=== PATIENT | female | born 1985 | race Caucasian/White ===

== ENCOUNTER 2016-11-16 21:53 | Emergency (ER) | payer OTHER ==
[2016-11-16] MEDS ORDERED: MECLIZINE 12.5 MG TAB As Ordered ONE (23:01)
[2016-11-16] MEDS ORDERED: AUGMENTIN 875 MG TAB As Ordered ONE (23:01)
[2016-11-16] MEDS ORDERED: NORCO 5/325MG TABLET (BULK) As Ordered ONE (23:02)
--- NOTE | 2016-11-16 23:10 | EDDOCDS ---
Physician Documentation [facility] Name: Radha Maurer Age: 31 yrs Sex: Female : 1985 Arrival Date: 11/16/2016 Time: 21:53 Bed Triage 1 Private MD: NO PRIMARY PHYSICIAN, . Disposition: 11/16/16 23:02 Discharged to Home/Self Care. Impression: Acute sinusitis, Other peripheral vertigo. - Condition is Stable. - Discharge Instructions: Sinusitis, Adult, Vertigo. - Prescriptions for Augmentin 875- 125 mg Oral Tablet - take 1 tablet by ORAL route every 12 hours for 10 days; 20 tablet. Meclizine 25 mg Oral Tablet - take 1 tablet by ORAL route every 8 hours As needed; 30 tablet. ZOFRAN ODT 4 mg - dissolve 1 tablet by ORAL route 4 times per day As needed do not chew, do not swallow whole; 10 tablet. Fluticasone 50 mcg/actuation Nasal [place], Suspension - inhale 2 spray by INTRANASAL route once daily; 1 bottle. - Medication Reconciliation, Local Pharmacy Hours, Work Release Form - 2 day form. - [facility] up[facility]; When: Call to arrange an appointment; Reason: Recheck today's complaints, Continuance of care. - Problem is new. - Symptoms are unchanged. Historical: - Allergies: no known allergies; - Home Meds: 1. ibuprofen 1600mg Oral tab every 6 hours (Last dose: 11/16/2016 20:00) 2. Tylenol 325 mg Oral tab 2 tabs every 3 hours (Last dose: 11/16/2016 17:00) - PMHx: none; - PSHx: eye surgery as child; Tubal ligation; - Social history: Smoking status: Patient uses tobacco products, heavy tobacco smoker. Patient/guardian denies using alcohol, street drugs, No barriers to communication noted, The patient speaks fluent Botswanan, Speaks appropriately for age. - Family history: Not pertinent. - : The pt / caregiver states he / she is not on anticoagulants. Home medication list is obtained from the patient. - Exposure Risk Screening:: None identified. 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 9 in. (175.26 cm) (R); Pain 10/10; 23:07 BP 120 / 58; Pulse 75; Resp 18; Temp 98.2(O); Pulse Ox 96% on R/A; Pain 2/10; jmb 21:54 Body Mass Index 25.10 (77.11 kg, 175.26 cm) gr2 MDM: 22:56 Amoxicillin-Clavulanate 875 mg 1 tabs PO once ordered. mo1 22:56 HYDROcodone-acetaminophen 4 pack- 5 mg-325 mg 1 packets PO Per package directions; mo1 Dispense with patient. 1 po q4h prn for pain ordered. 22:56 Meclizine 25 mg PO once ordered. mo1 23:08 Financial registration complete. gjb Administered Medications: 23:04 Drug: HYDROcodone-acetaminophen 4 pack- 1 packets [hydrocodone 5 mg-acetaminophen 325 jmb mg tablet (1 tabs)] {Co-Signature: [email or web address] (Stacia Woodard RN).} Route: PO; 23:07 Drug: Amoxicillin-Clavulanate 1 tabs [amoxicillin 875 mg-potassium clavulanate 125 mg jmb tablet (1 tabs)] Route: PO; 23:07 Drug: Meclizine 25 mg [meclizine 12.5 mg tablet (2 tabs)] Route: PO; vel Signatures: Stacia Woodard RN RN ttb O'Hagan, Michael, PA PA mo1 Willard Hays RN RN jmb Beck, Gabriela gjb Teresa Conner RN ttb MTDD
--- NOTE | 2016-11-16 23:11 | EDDOCDS ---
Nurse's Notes [facility] Name: Radha Maurer Age: 31 yrs Sex: Female : 1985 Arrival Date: 11/16/2016 Time: 21:53 Bed Triage 1 Private MD: NO PRIMARY PHYSICIAN, . Diagnosis: Acute sinusitis;Other peripheral vertigo Presentation: 11/16 22:08 Presenting complaint: Patient states: headache x3 days. Right ear pain started today. ttb Adult Sepsis Screening: The patient does not have new or worsening altered mentation. Patient's respiratory rate is less than 22. Systolic blood pressure is greater than 100. Patient has a qSOFA score of 0- Negative Sepsis Screen. Suicide/Homicide risk assessment- the patient denies having any suicidal and/or homicidal ideations and does not present with any other emotional, behavioral or mental health complaints. Status: Patient is not a sales agent pest control service or dependent. Transition of care: patient was not received from another setting of care. 22:08 Acuity: JULIA Level 5 ttb 22:08 Method Of Arrival: Walkin/Carried/Asstd ttb Triage Assessment: 22:09 General: Appears in no apparent distress, uncomfortable, well nourished, well groomed, ttb Behavior is appropriate for age, cooperative, pleasant. Pain: Location: head and right ear Pain currently is 10 out of 10 on a pain scale. At worst was 10 out of 10 on a pain scale. HIV screening NA for this visit Offered previously. Neurological: Level of Consciousness is awake, alert. Neurological: Reports headache. EENT: Reports nasal congestion nasal discharge. EENT: Reports pain in right ear. Cardiovascular: Chest pain is denied. Respiratory: Airway is patent Respiratory effort is even, unlabored, Reports cough that is productive, Denies shortness of breath. Derm: Skin is normal. Injury Description: No known injury. 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 ibuprofen 1600mg Oral tab every 6 hours (Last dose: 11/16/2016 20:00) 2. Tylenol 325 mg Oral tab 2 tabs every 3 hours (Last dose: 11/16/2016 17:00) - PMHx: none; - PSHx: eye surgery as child; Tubal ligation; - Social history: Smoking status: Patient uses tobacco products, heavy tobacco smoker. Patient/guardian denies using alcohol, street drugs, No barriers to communication noted, The patient speaks fluent Norwegian, Speaks appropriately for age. - Family history: Not pertinent. - : The pt / caregiver states he / she is not on anticoagulants. Home medication list is obtained from the patient. - Exposure Risk Screening:: None identified. Screenin:07 Screening information is obtained from the patient. Fall risk: No risks identified. jmb Assistance ADL's: requires no assistance with activities of daily living. Abuse/DV Screen: The patient / caregiver reports he/she is: not in a situation that causes fear, pain or injury. Nutritional screening: No deficits noted. Advance Directives: Currently, there is no health care proxy. There is no active DNR order. There is no living will. There is no Power of Director Furniture. home support is adequate. Assessment: 23:07 General: Patient instructed on discharge instructions. Patient asked if there were any b questions regarding discharge, patient stated no. Patient signed discharge instructions. Patient discharged in stable condition. . Vital Signs: 21:54 BP 115 / 78; Pulse 87; Resp 18 S; Temp 98.0(O); Pulse Ox 96% on R/A; Weight 77.11 kg gr2 (R); Height 5 ft. 9 in. (175.26 cm) (R); Pain 10/10; 23:07 BP 120 / 58; Pulse 75; Resp 18; Temp 98.2(O); Pulse Ox 96% on R/A; Pain 2/10; jmb 21:54 Body Mass Index 25.10 (77.11 kg, 175.26 cm) gr2 Vitals: 21:54 Log In Time: November 16, 2016 at 21:54. gr2 ED Course: 21:54 Patient visited by Ani Rae. gr2 21:54 NO PRIMARY PHYSICIAN, . is Private Physician. gr2 21:54 Patient moved to Waiting gr2 21:55 Patient visited by Ani Rae. gr2 21:55 Patient moved to Pre RCE gr2 22:08 Triage Initiated ttb 22:35 Patient moved to Triage 1 rn1 22:36 Cesar De La Cruz PA is PHCP. mo1 22:36 Michael Barraza DO is Attending Physician. mo1 22:55 Patient visited by Cesar De La Cruz PA. mo1 23:02 [facility] is Referral Physician. mo1 23:07 The patient / caregiver is instructed regarding the plan of care and ED course. jmb 23:07 No IV's were initiated during this patient's visit. No procedures done that require jmb assistance. Administered Medications: 23:04 Drug: HYDROcodone-acetaminophen 4 pack- 1 packets [hydrocodone 5 mg-acetaminophen 325 jmb mg tablet (1 tabs)] {Co-Signature: ttb (Stacia Woodard RN).} Route: PO; 23:07 Drug: Amoxicillin-Clavulanate 1 tabs [amoxicillin 875 mg-potassium clavulanate 125 mg jmb tablet (1 tabs)] Route: PO; 23:07 Drug: Meclizine 25 mg [meclizine 12.5 mg tablet (2 tabs)] Route: PO; jmb Order Results: There are currently no results for this order. Outcome: 23:02 Discharge ordered by Provider. mo1 23:07 Discharge Assessment: Patient awake, alert and oriented x 3. No cognitive and/or jmb functional deficits noted. Patient verbalized understanding of disposition instructions. Patient awake and alert. obeys commands, Oriented to person, place and time. Patient verbalized understanding of disposition instructions. Patient has no functional deficits. patient administered narcotics - no. The following High Risk Discharge criteria are identified: None. Discharged to home ambulatory, with friend. Condition: stable. Discharge instructions given to patient, Instructed on discharge instructions, follow up and referral plans. medication usage, Demonstrated understanding of instructions, medications, Pt was receptive of discharge instructions/ teaching. Prescriptions given X 4. No special radiology studies were completed. Property sent home with patient. 23:10 Patient left the ED. jmb Signatures: Stacia Woodard RN RN ttb Ain Rae 2 Cesar De La Cruz PA PA mo1 Willard Hays RN RN jmb Ganesh Freeman rn1 Stacia Woodard RN ttviktoriya MTDD
--- NOTE | 2016-11-19 00:11 | EDDOCDS ---
Physician Documentation [facility] Name: Radha Maurer Age: 31 yrs Sex: Female : 1985 Arrival Date: 11/16/2016 Time: 21:53 Bed Triage 1 Private MD: NO PRIMARY PHYSICIAN, . Disposition: 11/16/16 23:02 Discharged to Home/Self Care. Impression: Acute sinusitis, Other peripheral vertigo. - Condition is Stable. - Discharge Instructions: Sinusitis, Adult, Vertigo. - Prescriptions for Augmentin 875- 125 mg Oral Tablet - take 1 tablet by ORAL route every 12 hours for 10 days; 20 tablet. Meclizine 25 mg Oral Tablet - take 1 tablet by ORAL route every 8 hours As needed; 30 tablet. ZOFRAN ODT 4 mg - dissolve 1 tablet by ORAL route 4 times per day As needed do not chew, do not swallow whole; 10 tablet. Fluticasone 50 mcg/actuation Nasal [place], Suspension - inhale 2 spray by INTRANASAL route once daily; 1 bottle. - Medication Reconciliation, Local Pharmacy Hours, Work Release Form - 2 day form. - Follow up: [facility]; When: Call to arrange an appointment; Reason: Recheck today's complaints, Continuance of care. - Problem is new. - Symptoms are unchanged. Historical: - Allergies: no known allergies; - Home Meds: 1. ibuprofen 1600mg Oral tab every 6 hours (Last dose: 11/16/2016 20:00) 2. Tylenol 325 mg Oral tab 2 tabs every 3 hours (Last dose: 11/16/2016 17:00) - PMHx: none; - PSHx: eye surgery as child; Tubal ligation; - Social history: Smoking status: Patient uses tobacco products, heavy tobacco smoker. Patient/guardian denies using alcohol, street drugs, No barriers to communication noted, The patient speaks fluent Occitan, Speaks appropriately for age. - Family history: Not pertinent. - : The pt / caregiver states he / she is not on anticoagulants. Home medication list is obtained from the patient. - Exposure Risk Screening:: None identified. 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 9 in. (175.26 cm) (R); Pain 10/10; 23:07 BP 120 / 58; Pulse 75; Resp 18; Temp 98.2(O); Pulse Ox 96% on R/A; Pain 2/10; jmb 21:54 Body Mass Index 25.10 (77.11 kg, 175.26 cm) gr2 MDM: 22:56 Amoxicillin-Clavulanate 875 mg 1 tabs PO once ordered. mo1 22:56 HYDROcodone-acetaminophen 4 pack- 5 mg-325 mg 1 packets PO Per package directions; mo1 Dispense with patient. 1 po q4h prn for pain ordered. 22:56 Meclizine 25 mg PO once ordered. mo1 23:08 Financial registration complete. [email or web address] 11/17 00:33 [facility] Payment Agreement was scanned into [email or web address] and attached to record. [facility] 07:41 T-Sheet-- Draft Copy was scanned into [employer] and attached to record. gb Administered Medications: 11/16 23:04 Drug: HYDROcodone-acetaminophen 4 pack- 1 packets [hydrocodone 5 mg-acetaminophen 325 jmb mg tablet (1 tabs)] {Co-Signature: ttviktoriya (Stacia Woodard RN).} Route: PO; 23:07 Drug: Amoxicillin-Clavulanate 1 tabs [amoxicillin 875 mg-potassium clavulanate 125 mg jmb tablet (1 tabs)] Route: PO; 23:07 Drug: Meclizine 25 mg [meclizine 12.5 mg tablet (2 tabs)] Route: PO; b Signatures: Alret Patrick, Reg Reg Stacia Grace RN RN Cesar Ndiaye PA PA mo1 Willard Hays RN RN jmb Hook, Sandra Anel Can RN The chart was reviewed and I authenticate all verbal orders and agree with the evaluation and treatment provided.Attachments: 11/17 00:33 [facility] Payment Agreement [facility] 07:41 T-Sheet-- Draft Copy gb Chart Complete MTDD
--- NOTE | 2016-11-19 00:11 | EDDOCDS ---
Physician Documentation [facility] Name: Radha Maurer Age: 31 yrs Sex: Female : 1985 Arrival Date: 11/16/2016 Time: 21:53 Bed Triage 1 Private MD: NO PRIMARY PHYSICIAN, . Disposition: 11/16/16 23:02 Discharged to Home/Self Care. Impression: Acute sinusitis, Other peripheral vertigo. - Condition is Stable. - Discharge Instructions: Sinusitis, Adult, Vertigo. - Prescriptions for Augmentin 875- 125 mg Oral Tablet - take 1 tablet by ORAL route every 12 hours for 10 days; 20 tablet. Meclizine 25 mg Oral Tablet - take 1 tablet by ORAL route every 8 hours As needed; 30 tablet. ZOFRAN ODT 4 mg - dissolve 1 tablet by ORAL route 4 times per day As needed do not chew, do not swallow whole; 10 tablet. Fluticasone 50 mcg/actuation Nasal [place], Suspension - inhale 2 spray by INTRANASAL route once daily; 1 bottle. - Medication Reconciliation, Local Pharmacy Hours, Work Release Form - 2 day form. - Follow up: [facility]; When: Call to arrange an appointment; Reason: Recheck today's complaints, Continuance of care. - Problem is new. - Symptoms are unchanged. Historical: - Allergies: no known allergies; - Home Meds: 1. ibuprofen 1600mg Oral tab every 6 hours (Last dose: 11/16/2016 20:00) 2. Tylenol 325 mg Oral tab 2 tabs every 3 hours (Last dose: 11/16/2016 17:00) - PMHx: none; - PSHx: eye surgery as child; Tubal ligation; - Social history: Smoking status: Patient uses tobacco products, heavy tobacco smoker. Patient/guardian denies using alcohol, street drugs, No barriers to communication noted, The patient speaks fluent Icelandic, Speaks appropriately for age. - Family history: Not pertinent. - : The pt / caregiver states he / she is not on anticoagulants. Home medication list is obtained from the patient. - Exposure Risk Screening:: None identified. 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 9 in. (175.26 cm) (R); Pain 10/10; 23:07 BP 120 / 58; Pulse 75; Resp 18; Temp 98.2(O); Pulse Ox 96% on R/A; Pain 2/10; jmb 21:54 Body Mass Index 25.10 (77.11 kg, 175.26 cm) gr2 MDM: 22:56 Amoxicillin-Clavulanate 875 mg 1 tabs PO once ordered. mo1 22:56 HYDROcodone-acetaminophen 4 pack- 5 mg-325 mg 1 packets PO Per package directions; mo1 Dispense with patient. 1 po q4h prn for pain ordered. 22:56 Meclizine 25 mg PO once ordered. mo1 23:08 Financial registration complete. [email or web address] 11/17 00:33 [facility] Payment Agreement was scanned into [employer] and attached to record. [facility] 07:41 T-Sheet-- Draft Copy was scanned into [employer] and attached to record. gb Administered Medications: 11/16 23:04 Drug: HYDROcodone-acetaminophen 4 pack- 1 packets [hydrocodone 5 mg-acetaminophen 325 jmb mg tablet (1 tabs)] {Co-Signature: ttviktoriya (Stacia Woodard RN).} Route: PO; 23:07 Drug: Amoxicillin-Clavulanate 1 tabs [amoxicillin 875 mg-potassium clavulanate 125 mg jmb tablet (1 tabs)] Route: PO; 23:07 Drug: Meclizine 25 mg [meclizine 12.5 mg tablet (2 tabs)] Route: PO; b Signatures: Arlet Patrick, Reg Reg Stacia Grace RN RN Cesar Ndiaye PA PA mo1 Willard Hays RN RN jmb Hook, Sandra Anel Can RN The chart was reviewed and I authenticate all verbal orders and agree with the evaluation and treatment provided.Attachments: 11/17 00:33 [facility] Payment Agreement [facility] 07:41 T-Sheet-- Draft Copy gb Chart Complete MTDD
--- NOTE | 2016-11-19 00:11 | EDDOCDS ---
Nurse's Notes [facility] Name: Radha Maurer Age: 31 yrs Sex: Female : 1985 Arrival Date: 11/16/2016 Time: 21:53 Bed Triage 1 Private MD: NO PRIMARY PHYSICIAN, . Diagnosis: Acute sinusitis;Other peripheral vertigo Presentation: 11/16 22:08 Presenting complaint: Patient states: headache x3 days. Right ear pain started today. ttb Adult Sepsis Screening: The patient does not have new or worsening altered mentation. Patient's respiratory rate is less than 22. Systolic blood pressure is greater than 100. Patient has a qSOFA score of 0- Negative Sepsis Screen. Suicide/Homicide risk assessment- the patient denies having any suicidal and/or homicidal ideations and does not present with any other emotional, behavioral or mental health complaints. Status: Patient is not a business services associate or dependent. Transition of care: patient was not received from another setting of care. 22:08 Acuity: JULIA Level 5 ttb 22:08 Method Of Arrival: Walkin/Carried/Asstd ttb Triage Assessment: 22:09 General: Appears in no apparent distress, uncomfortable, well nourished, well groomed, ttb Behavior is appropriate for age, cooperative, pleasant. Pain: Location: head and right ear Pain currently is 10 out of 10 on a pain scale. At worst was 10 out of 10 on a pain scale. HIV screening NA for this visit Offered previously. Neurological: Level of Consciousness is awake, alert. Neurological: Reports headache. EENT: Reports nasal congestion nasal discharge. EENT: Reports pain in right ear. Cardiovascular: Chest pain is denied. Respiratory: Airway is patent Respiratory effort is even, unlabored, Reports cough that is productive, Denies shortness of breath. Derm: Skin is normal. Injury Description: No known injury. 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 ibuprofen 1600mg Oral tab every 6 hours (Last dose: 11/16/2016 20:00) 2. Tylenol 325 mg Oral tab 2 tabs every 3 hours (Last dose: 11/16/2016 17:00) - PMHx: none; - PSHx: eye surgery as child; Tubal ligation; - Social history: Smoking status: Patient uses tobacco products, heavy tobacco smoker. Patient/guardian denies using alcohol, street drugs, No barriers to communication noted, The patient speaks fluent [place] Zealander, Speaks appropriately for age. - Family history: Not pertinent. - : The pt / caregiver states he / she is not on anticoagulants. Home medication list is obtained from the patient. - Exposure Risk Screening:: None identified. Screenin:07 Screening information is obtained from the patient. Fall risk: No risks identified. jmb Assistance ADL's: requires no assistance with activities of daily living. Abuse/DV Screen: The patient / caregiver reports he/she is: not in a situation that causes fear, pain or injury. Nutritional screening: No deficits noted. Advance Directives: Currently, there is no health care proxy. There is no active DNR order. There is no living will. 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 home support is adequate. Assessment: 23:07 General: Patient instructed on discharge instructions. Patient asked if there were any b questions regarding discharge, patient stated no. Patient signed discharge instructions. Patient discharged in stable condition. . Vital Signs: 21:54 BP 115 / 78; Pulse 87; Resp 18 S; Temp 98.0(O); Pulse Ox 96% on R/A; Weight 77.11 kg gr2 (R); Height 5 ft. 9 in. (175.26 cm) (R); Pain 10/10; 23:07 BP 120 / 58; Pulse 75; Resp 18; Temp 98.2(O); Pulse Ox 96% on R/A; Pain 2/10; jmb 21:54 Body Mass Index 25.10 (77.11 kg, 175.26 cm) gr2 Vitals: 21:54 Log In Time: November 16, 2016 at 21:54. gr2 ED Course: 21:54 Patient visited by Ani Rae. gr2 21:54 NO PRIMARY PHYSICIAN, . is Private Physician. gr2 21:54 Patient moved to Waiting gr2 21:55 Patient visited by Ani Rae. gr2 21:55 Patient moved to Pre RCE gr2 22:08 Triage Initiated ttb 22:35 Patient moved to Triage 1 rn1 22:36 Cesar De La Cruz PA is PHCP. mo1 22:36 Michael Barraza DO is Attending Physician. mo1 22:55 Patient visited by Cesar De La Cruz PA. mo1 23:02 [facility] is Referral Physician. mo1 23:07 The patient / caregiver is instructed regarding the plan of care and ED course. jmb 23:07 No IV's were initiated during this patient's visit. No procedures done that require jmb assistance. 11/17 00:33 [facility] Payment Agreement was scanned into [employer] and attached to record. [facility] 07:41 T-Sheet-- Draft Copy was scanned into [employer] and attached to record. gb Administered Medications: 11/16 23:04 Drug: HYDROcodone-acetaminophen 4 pack- 1 packets [hydrocodone 5 mg-acetaminophen 325 jmb mg tablet (1 tabs)] {Co-Signature: jovan (Stacia Woodard RN).} Route: PO; 23:07 Drug: Amoxicillin-Clavulanate 1 tabs [amoxicillin 875 mg-potassium clavulanate 125 mg jmb tablet (1 tabs)] Route: PO; 23:07 Drug: Meclizine 25 mg [meclizine 12.5 mg tablet (2 tabs)] Route: PO; jmb Order Results: There are currently no results for this order. Outcome: 23:02 Discharge ordered by Provider. mo1 23:07 Discharge Assessment: Patient awake, alert and oriented x 3. No cognitive and/or jmb functional deficits noted. Patient verbalized understanding of disposition instructions. Patient awake and alert. obeys commands, Oriented to person, place and time. Patient verbalized understanding of disposition instructions. Patient has no functional deficits. patient administered narcotics - no. The following High Risk Discharge criteria are identified: None. Discharged to home ambulatory, with friend. Condition: stable. Discharge instructions given to patient, Instructed on discharge instructions, follow up and referral plans. medication usage, Demonstrated understanding of instructions, medications, Pt was receptive of discharge instructions/ teaching. Prescriptions given X 4. No special radiology studies were completed. Property sent home with patient. 23:10 Patient left the ED. jmb Signatures: Arlet Patrick, Reg Reg Stacia Grace RN RN Ani Hyatt gr2 Cesar De La Cruz PA PA mo1 Willard Hays RN RN jmb Hook, Sandra [facility] Freeman, Ganesh rn1 Stacia Woodard RN ttb Chart Complete MTDD
== END 2016-11-16 23:10 | disposition home or self-care (01) ==
LOC: M ED 21:53
DX: J01.90 Acute sinusitis, unspecified (principal); R42 Dizziness and giddiness; H92.01 Otalgia, right ear; Z72.0 Tobacco use

== ENCOUNTER → 2017-03-02 | Outpatient (CLI) | payer OTHER, MEDICAID ==
[2017-03-02 15:12] LABS: MEAN CORPUSCULAR HEMOGLOBIN 30.6 pg (27.0-33.0); MEAN CORPUSCULAR HGB CONC 33.5 g/dl (32.0-36.5); MEAN CORPUSCULAR VOLUME 91.5 fl (80.0-96.0); RED CELL DISTRIBUTION WIDTH 13.1 % (11.5-14.5); WHITE BLOOD COUNT 7.4 K/mm3 (4.0-10.0)
== END ==
LOC: M LAB 14:39
PROVIDERS: ATTEND Family Medicine
DX: N93.8 Other specified abnormal uterine and vaginal bleeding (principal)

== ENCOUNTER → 2017-05-31 | Outpatient (CLI) | payer OTHER, MEDICAID ==
[~2017-05-31] MED LIST: TRINTAB3
--- NOTE | 2017-05-31 10:10 | REP ---
Pelvic sonography: History: Dysfunctional uterine bleeding. Comparison study: December 04, 2013. Findings: Transabdominal and transvaginal scanning are performed. Visualized bladder cm are smooth. Uterine dimensions are normal at 9.5 x 4.3 x 6.7 cm. Endometrial echo 0.4 cm thick. No focal uterine mass seen is seen. Normal ovaries are observed bilaterally. Right ovarian dimensions are 1.7 x 1.3 x 2.2 cm. Left ovary measures 1.4 x 1.2 x 1.6 cm. Impression: Normal pelvic sonography.
== END ==
LOC: M WHC 08:29
PROVIDERS: ATTEND Nurse Practitioner Women's Health
DX: N93.8 Other specified abnormal uterine and vaginal bleeding (principal)

== ENCOUNTER 2017-06-12 21:04 | Emergency (ER) | payer OTHER, MEDICAID ==
[~2017-06-12] VITALS: Ht 175.3 cm; Wt 81.8 kg
[2017-06-12] MEDS ORDERED: TRINTAB3 (21:21)
[2017-06-12] MEDS ORDERED: NORCO, ANEXSIA 5/325MG TABLET (HYDROcodone/ACETAMINOPHEN) PO ONE (23:45)
[2017-06-12] MEDS ORDERED: IBUPROFEN 800 MG TAB PO ONE (23:45)
--- NOTE | 2017-06-13 00:30 | REPUSA ---
CLINICAL HISTORY: Edema. COMMENTS: Real time sonography with duplex doppler of the right lower extremity was performed with attention to the major deep venous structures. Evaluation reveals the right common femoral, superficial femoral and popliteal veins to be completely compressible without intraluminal thrombus. There is normal spontaneous phasic flow and augmentation . The greater saphenous/common femoral vein junction is patent. IMPRESSION: No evidence of DVT in right lower extremity. Thank you for your kind referral of this patient.
[2017-06-13 01:19] VITALS: BP 131/67
--- NOTE | 2017-06-13 01:42 | REP ---
Clinical: Pain Technique: AP, lateral, bilateral oblique and sunrise views right knee . Findings: The osseous structures and joint spaces are intact and without acute fracture or dislocation. No joint effusion is appreciated. Mild age-related degenerative changes noted. Surrounding soft tissues are unremarkable. No subcutaneous emphysema or radiodense foreign body. Impression: Mild age-related changes. No acute fracture or dislocation. Signed by Mike Gold MD 06/13/2017 01:34 A
== END 2017-06-13 01:20 | disposition home or self-care (01) ==
LOC: M ED 21:04
DX: S83.91XA Sprain of unspecified site of right knee, initial encounter (principal); F17.210 Nicotine dependence, cigarettes, uncomplicated; X58.XXXA Exposure to other specified factors, initial encounter; Y92.9 Unspecified place or not applicable; Y99.9 Unspecified external cause status; Y93.9 Activity, unspecified

== ENCOUNTER → 2018-04-12 | Outpatient (REF) | payer OTHER ==
[2018-04-12 19:41] LABS: CHLAMYDIA DNA AMPLIFICATION NEGATIVE (NEGATIVE); GC DNA AMPLIFICATION NEGATIVE (NEGATIVE)
== END ==
LOC: M SFHCWAGY 15:06
DX: Z12.4 Encounter for screening for malignant neoplasm of cervix (principal); Z11.3 Encounter for screening for infections with a predominantly sexual mode of transmission

== ENCOUNTER 2018-06-26 16:17 | Emergency (ER) | payer OTHER ==
[2018-06-26] MEDS: MORPHINE 4 MG/ML 1ML VIAL/SYRINGE (J2270) IV (20:13)
[2018-06-26] MEDS: KETOROLAC 30 MG/ML VIAL (J1885) IV (20:13)
[2018-06-26] MEDS: CLINDAMYCIN 900 MG in APPROPRIATE DILUENT 1 EA IV (20:14)
[2018-06-26 20:26] LABS: BASO # 0.1 10^3/uL (0.0-0.2); BASO % 0.6 % (0.0-1.0); EOS # 0.1 10^3/uL (0.0-0.50); EOS % 0.5 % (0.0-3.0); HEMATOCRIT 39.4 % (36.0-47.0); HEMOGLOBIN 13.2 g/dl (12.0-15.5); IMMATURE GRANULOCYTE % 0.2 % (0-3.0); LYMPH # 3.3 10^3/uL (1.5-4.5); LYMPH % 24.8 % (24.0-44.0); MEAN CORPUSCULAR HEMOGLOBIN 31.1 pg (27.0-33.0); MEAN CORPUSCULAR HGB CONC 33.5 g/dl (32.0-36.5); MEAN CORPUSCULAR VOLUME 92.9 fl (80.0-96.0); MONO # 0.9 10^3/uL (0.0-0.8); MONO % 6.8 % (0.0-5.0); NEUTROPHILS % 67.1 % (36.0-66.0); PLATELET COUNT, AUTOMATED 238 10^3/uL (150-450); RED BLOOD COUNT 4.24 10^6/uL (4.00-5.40); WHITE BLOOD COUNT 13.4 10^3/uL (4.0-10.0)
[2018-06-26 20:46] LABS: ANION GAP 6 MEQ/L (8-16); BLOOD UREA NITROGEN 9 MG/DL (7-18); CALCIUM LEVEL 8.3 MG/DL (8.5-10.1); CARBON DIOXIDE LEVEL 26 MEQ/L (21-32); CHLORIDE LEVEL 108 MEQ/L (98-107); ERYTHROCYTE SEDIMENTATION RATE 12 mm/hr (0-20); GLOMERULAR FILTRATION RATE > 60.0 (>60); GLUCOSE, FASTING 91 MG/DL (70-100); SODIUM LEVEL 140 MEQ/L (136-145)
[2018-06-26] MEDS ORDERED: ISOVUE-370 76% 100ML VIAL (Q9967) As Ordered (20:54)
[2018-06-26] MEDS: NORCO 5/325MG TABLET (BULK FOR ED) PO (22:45)
== END 2018-06-26 22:52 | disposition home or self-care (01) ==
LOC: M ED 16:17
DX: K04.7 Periapical abscess without sinus (principal); K08.89 Other specified disorders of teeth and supporting structures; Z72.0 Tobacco use
CPT/HCPCS: J2270

== ENCOUNTER → 2019-12-15 | Outpatient (REF) | payer OTHER ==
[~2019-12-15] MED LIST changes: +CLEO300C2 PO; +HYDR-3715 PO; +KETO10TAB PO; +TRINTAB; -TRINTAB3
[2019-12-15 12:41] LABS: BASO # 0.1 10^3/uL (0.0-0.2); BASO % 1.2 % (0.0-1.0); EOS # 0.1 10^3/uL (0.0-0.5); EOS % 1.6 % (0.0-3.0); HEMOGLOBIN 12.9 g/dl (12.0-15.5); LYMPH # 2.1 10^3/uL (1.5-5.0); MEAN CORPUSCULAR HEMOGLOBIN 30.4 pg (27.0-33.0); MEAN CORPUSCULAR HGB CONC 33.1 g/dl (32.0-36.5); MONO # 0.6 10^3/uL (0.0-0.8); MONO % 6.7 % (0.0-5.0); NEUTROPHILS # 5.5 10^3/uL (1.5-8.5); NEUTROPHILS % 65.1 % (36.0-66.0); PLATELET COUNT, AUTOMATED 279 10^3/uL (150-450); RED BLOOD COUNT 4.24 10^6/uL (4.00-5.40); WHITE BLOOD COUNT 8.4 10^3/uL (4.0-10.0)
== END ==
LOC: M SFHCPLAZ 09:29
PROVIDERS: ATTEND Nurse Practitioner Family
DX: D64.9 Anemia, unspecified (principal)

== ENCOUNTER → 2023-01-15 | Outpatient (REF) | LOC: M LABSMTC 08:48 | PROVIDERS: ATTEND Family Medicine | DX: Z11.52 Encounter for screening for COVID-19 (principal) ==

== ENCOUNTER → 2023-02-14 | Outpatient (CLI) | payer OTHER | LOC: M WUC 10:04 | PROVIDERS: ATTEND Physician Assistant | DX: S39.012A Strain of muscle, fascia and tendon of lower back, initial encounter (principal); R11.2 Nausea with vomiting, unspecified; X58.XXXA Exposure to other specified factors, initial encounter; Y92.9 Unspecified place or not applicable; Y93.9 Activity, unspecified; Y99.9 Unspecified external cause status; J84.10 Pulmonary fibrosis, unspecified; M46.04 Spinal enthesopathy, thoracic region ==